=== PATIENT | male | born 1990 | race Caucasian/White ===

== ENCOUNTER 2021-11-12 12:49 | Outpatient (CLI) | payer OTHER, SELFPAY ==
--- NOTE | 2021-11-12 13:20 | XR_ITS ---
WS: [id number] XR ankle LT min 3V* [id number] REASON FOR EXAM: M25.572 - Pain in left ankle and joints of left foot FINDINGS: No fracture or focal bone lesion. The joint spaces of the left ankle joint are intact and well preserved. No soft tissue calcifications. XR/XR ankle LT min 3V* [id number] IMPRESSION: No significant abnormality.
--- NOTE | 2021-11-12 13:20 | XR_ITS ---
WS: [id number] XR tibia fibula LT 2V [id number] REASON FOR EXAM: M79.605 - Pain in left leg FINDINGS: No fracture or focal bone lesion. No erosions or periosteal reaction. No soft tissue calcification. XR/XR tibia fibula LT 2V [id number] IMPRESSION: No significant abnormality.
== END 2021-11-12 12:50 | disposition home or self-care (01) ==
PROVIDERS: Visit Provider Emergency Medicine
DX: M25.572 Pain in left ankle and joints of left foot (principal); M79.605 Pain in left leg
CPT/HCPCS: 73590; 73610

== ENCOUNTER 2021-11-15 10:21 | Outpatient (CLI) | payer OTHER, SELFPAY ==
--- NOTE | 2021-11-15 10:31 | XRR_ITS ---
PROCEDURE INFORMATION: Exam: XR Left Ankle Exam date and time: 11/15/2021 10:31 AM Age: 30 years old Clinical indication: Pain and injury or trauma; Other: Fall from ladder; Blunt trauma and swelling (edema); Ankle; Right; Additional info: M79.605 - pain in left leg TECHNIQUE: Imaging protocol: XR Left ankle. Views: 3 or more views. Total images: 3 COMPARISON: No relevant prior studies available. FINDINGS: Bones/joints: No acute fracture nor subluxation. No osseous erosion nor periosteal reaction. Soft tissues: Medial soft tissue swelling is evident. XR/XR ankle LT min 3V* [id number] IMPRESSION: 1. Medial soft tissue swelling is evident. 2. No acute osseous pathology.
== END 2021-11-15 10:22 | disposition home or self-care (01) ==
PROVIDERS: Visit Provider Emergency Medicine
DX: M79.605 Pain in left leg (principal); M25.572 Pain in left ankle and joints of left foot; M79.89 Other specified soft tissue disorders
CPT/HCPCS: 73610